=== PATIENT | female | born 1955 | race Caucasian/White ===

== ENCOUNTER → 2023-04-30 | Outpatient (CLI) | payer MEDICARE ==
--- NOTE | 2023-04-30 17:31 | US ---
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 F orearm lump formed then, wrist lump formed a few months later TECHNIQUE: Targeted scanning at the right wrist and forearm at the patient's palpable sites. FINDINGS: Supervisor Buffing And Pasting notes: No definite masses identified; lumps visible and felt while scanning. IMPRESSION: The bleach mixer was unable to identify discrete ultrasound correlate is to the patient's palpable lum ps at the right wrist and forearm. Clinical follow-up recommended. Rescan if any enlargement is noted .
== END | disposition home or self-care (01) ==
LOC: RADUSWWP 14:45
PROVIDERS: ATTEND Family Medicine
DX: D17.21 Benign lipomatous neoplasm of skin and subcutaneous tissue of right arm (principal); Z85.3 Personal history of malignant neoplasm of breast